=== PATIENT | male | born 1995 | race Caucasian/White ===

== ENCOUNTER 2017-01-08 16:23 | Emergency (ER) | payer SELFPAY ==
[~2017-01-08] VITALS: Ht 172.7 cm; Wt 137.3 kg
[2017-01-08 16:25] VITALS: Ht 172.7 cm; Wt 137.3 kg
--- OUTSIDE RECORDS SUMMARY | 2017-01-08 16:27 | XMS REPORT | Continuity of Care Document ---
Author Author [facility] Organization [facility] Address Unknown Phone Unavailable Support Name Relationship Address Phone GAYATHRI CLAYTON MD Caregiver [address] [place] [address] Unavailable OSKAR YOUNG Next Of Kin [address] [place] [address] Insurance Providers Guarantor Umberto Young Address [address] [place] [id number] Email DENIED/10-06-16 Payer Self Pay Subscriber's Name YoungUmberto Carlos Relationship 18 Self Chief Complaint and Reason for Visit Chief Complaint Cough,Fever,Flu,URI Reason for Visit Influenza Problems Active Problems Medical Problem Onset Date Status Thumb laceration Unknown Acute Past Problems Medical Problem Onset Date Influenza Unknown Medications Past Home Medications Medication Directions Ordered Status None , 02/17/10 Discontinued Social History Social History Problem Response Recorded Date/Time Onset Date Status Chewing Tobacco Status No 01/21/2013 10:52pm Not Applicable Not Applicable Hx Substance Use No 10/05/2016 11:54pm Not Applicable Not Applicable Hx Alcohol Use Y RARELY 10/05/2016 11:54pm Not Applicable Not Applicable Query Response Start Date Stop Date Smoking Status Current every day smoker Hospital Discharge Instructions No hospital discharge instructions. Plan of Care Discharge Date 10/06/16 1:06am Disposition 01 DISCHARGED HOME, SELF-CARE Condition at Discharge Improved Instructions/Education Provided Influenza (ED) Prescriptions See Medication Section Additional Instructions/Education Drink at least 3 quarts of fluid daily. Avoid caffeine and alcohol. Tylenol 1000mg and/or Ibuprofen 600mg four times daily as needed for aches/fever. Care Plan and Goals Physician Care Plan Problem: Influenza clinically, cough Goal: Follow up with primary care provider Instructions: Take medications and follow care plan as discussed/written Drink at least 3 quarts of fluid daily. Avoid caffeine and alcohol. Tylenol 1000mg and/or Ibuprofen 600mg four times daily as needed for aches/fever. Functional Status No functional status results. Allergies, Adverse Reactions, Alerts Allergen Type Severity Reaction Status Last Updated No Known Drug Allergies Allergy Unknown Active 10/05/16 Immunizations Query Response on File Recorded Date/Time Tdap Vaccine Hx 08/04/2015 08/04/15 6:11pm Vital Signs Acute Vital Signs Vital Response Date/Time Temperature (Fahrenheit) 99.8 deg F (96.8 - 99.1) 10/05/2016 11:50pm Temperature (Calculated Celsius) 37.99676 degrees C (36.0 - 37.3) 10/05/2016 11:50pm Pulse Rate (adult) 102 bpm (60 - 100) 10/06/2016 12:09am Respiratory Rate 21 breaths/min (10 - 20) 10/05/2016 11:50pm O2 Sat by Pulse Oximetry 97 % (90 - 100) 10/05/2016 11:50pm Blood Pressure 146/78 mm Hg 10/06/2016 12:09am Blood Pressure 121/70 mm Hg 10/06/2016 12:09am Height (Feet) 5 feet 10/05/2016 11:50pm Height (Inches) 8.00 inches 10/05/2016 11:50pm Weight (Kilograms) 130.600 kg 10/05/2016 11:50pm Body Mass Index (BMI) 43.0 10/05/2016 11:50pm Results No known relevant diagnostic tests, laboratory data and/or discharge summary. Procedures No known history of procedures. Encounters Encounter Location Arrival/Admit Date Discharge/Depart Date Attending Provider Departed Emergency Room [facility] 10/05/16 11:40pm 10/06/16 1: 06am GAYATHRI CLAYTON MD Recent Diagnosis
[2017-01-08] MEDS ORDERED: NO DAILY MEDS (16:43)
--- NOTE | 2017-01-08 17:24 | DI ---
Indication: ITS.REASON: Left foot pain for four years PROCEDURE: FOOT LEFT 3 VIEWS: Encounter: Initial Comparison: None Findings: There is no acute fracture, dislocation or malalignment identified. Impression: No acute osseous abnormality. .
--- NOTE | 2017-01-08 17:50 | ERPDOC ---
Departure Disposition Decision Date: January 08, 2017 Disposition Decision Time: 17:50 Disposition: 01 DISCHARGED HOME, SELF-CARE Impression Impression Impression: Primary Impression: Chronic pain in left foot Severity: Moderate Condition: Stable Seen By: Physician only Patient Instructions: Leg Pain (ED) Problems/Meds/Labs Reviewed?: Yes Medications reviewed and manag: Yes Additional Instructions: Mobic 15 mg tablet daily. Ice foot after work to decrease inflammation. You're cleared to return to work without restriction. Follow up care ordered?: Yes Mental Status: Alert, Oriented HPI - Lower Extremity General Chief Complaint: Lower Extremity Pain Stated Complaint: LEFT ANKLE PAIN Time Seen by Provider: 16:23 HPI - Lower Extremity Initial Comments 21-year-old gentleman with left foot pain. Patient has history of injury to the foot for years ago while in school. He states he needs to see a surgeon to have it fixed, but has not been able to do so yet. He started a new job, today is his second day. He was concerned about his foot hurting while at work and was told that he was a danger to the workplace unless he could get clearance from a doctor to go back to work. He is here to make sure the foot is okay and to get a work release. No other injuries or concerns at this time Allergies: Coded Allergies: No Known Drug Allergies (Verified Allergy, Unknown, 01/08/17) Past History Past Medical History Pt denies signifigant PMH Surgical History Denies Surgeries Family History Family PMH: FOUND: hypertension Social History Smoking Status: Never smoker Substance Use Type: does not use Record Review Pertinent history updated: Yes Review of Systems Musculoskeletal General: see HPI All other Systems All Other Systems: Reviewed and Negative Physical Exam General General Nourishment: appears stated age, no acute distress, adult, obese General Body Habitus: well groomed Vitals and Pain First Documented Vital Signs Date Time Temp Pulse Resp B/P Pulse Ox O2 Delivery O2 Flow Rate FiO2 01/08/17 16:25 97.7 100 16 136/88 98 Weight: Kilograms: 137.300 Height (feet): 5 Height (inches): 8.00 Triage Pain Scale: Normal Exams: Head: Normocephalic w/o trauma Chest/Resp: Clear all gamez, with good airflow, and symmetry bilaterally CV: Regular rate and rhythm, without murmur or gallop, Pulses 2+ all extremities, capillary refill, <2 seconds all ext., no pedal edema noted Neurologic: Patient is alert, and oriented, cranial nerves, motor/sensory/ cerebellar, exams w/o gross deficits, to observation Psychiatric: Patient exhibits, appropriate attention, emotion and affect Musculoskeletal (brief) Comments Mild tenderness lateral edge of foot immediately below malleolus. No bruising or swelling noted. Differential Diagnoses Considering: Other (sprain strain, fracture, ligament tear) Progress Results/Orders Orders Procedure Category Date Status Time Foot Left 3 Views RAD 01/08/17 Resulted 16:41 Progress Progress X-ray is normal left foot. Likely this is a sprain which has caused some chronic pain. Will recommend Mobic 15 mg daily, Aspercreme as needed on the joint, and work hardening. Patient is released to go back to work without restrictions. Recommend follow-up with podiatry. YONI GRIFFITH MD January 08, 2017 17:50
[2017-01-08] MEDS ORDERED: MELO15TA12 PO (17:52)
[2017-01-08 18:10] VITALS: BP 132/79; PULSE 90; RESP 16; TEMP 97.7; O2SAT 97
== END 2017-01-08 18:10 | disposition home or self-care (01) ==
LOC: ED 16:23
DX: M79.672 Pain in left foot (principal); G89.29 Other chronic pain